=== PATIENT | female | born 2005 | race American Indian/Alaskan Native ===

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

== ENCOUNTER 2025-03-09 03:03 | Emergency (ER) | payer OTHER, MEDICAID ==
[~2025-03-09 03:03] MED LIST: Sodium Chloride 0.9% 10 ML Syringe FLUSH PRN
[2025-03-09 03:32] LABS: BASOPHILS PERCENT AUTO 0.3 % (0.0-1.0); EOSINOPHILS PERCENT AUTO 3.8 % (1.0-3.0); LYMPHOCYTES PERCENT AUTO 22.6 % (20.5-50.1); MONOCYTES PERCENT AUTO 7.8 % (2-8); NEUTROPHILS PERCENT AUTO 65.5 % (42.2-75.2); PLATELET COUNT,PLT 315 10^3/uL (150-450); RED BLOOD CELL COUNT 4.50 10^6/uL (4.2-5.4); WHITE BLOOD CELL COUNT,WBC 7.7 10^3/uL (5.0-10.0)
[2025-03-09 04:00] LABS: A/G RATIO 1.0; ALANINE AMINOTRANSFERASE,ALT 28 U/L (14-59); ASPARTATE AMNIOTRANSFERASE,AST 23 U/L (15-37); BILIRUBIN TOTAL 0.2 mg/dL (0.2-1.0); BLOOD UREA NITROGEN,BUN 8 mg/dL (7-18); CARBON DIOXIDE,CO2 26 mmol/L (21-32); CHLORIDE,CL 107 mmol/L (98-107); CREATININE 0.50 mg/dL (0.55-1.02); ETHANOL BLOOD MEDICAL 60 mg/dL (0); GLUCOSE RANDOM 110 mg/dL (70-99); POTASSIUM,K 3.0 mmol/L (3.5-5.1); PROTEIN TOTAL,TP 7.7 g/dL (6.4-8.2); SODIUM,NA 144 mmol/L (136-145)
[2025-03-09 04:01] LABS: ESTIMATED GFR 138 mL/min (>=60)
[2025-03-09] MEDS: Potassium Chloride 10 MEQ Tab.ER PO ONE (04:51)
== END 2025-03-09 06:25 | disposition home or self-care (01) ==
LOC: DL.ED 03:03
DX: S16.1XXA Strain of muscle, fascia and tendon at neck level, initial encounter (principal); Z86.16 Personal history of COVID-19; V49.50XA Passenger injured in collision with unspecified motor vehicles in traffic accident, initial encounter
CPT/HCPCS: 36415; 70450; 72125; 80053; 80307; 83735; 85025; 99283; 99284; A9270